=== PATIENT | female | born 1965 | race Caucasian/White ===

== ENCOUNTER 2018-04-02 11:50 | Emergency (ER) | payer BC ==
--- NOTE | 2018-04-02 12:09 | ERPHSYRPT ---
- History of Present Illness Time Seen by Provider: 04/02/18 12:05 Source: patient Exam Limitations: no limitations Patient Subjective Stated Complaint: cut 2nd digit left hand with a knife while cutting [place]orge at home Triage Nursing Assessment: ambulated to room per self. skin w/d, color normal, resp easy. flap lac to 2nd digit left hand approx 2cm. minimal bleeding noted. full rom to finger. Physician History: cut 2nd digit left hand with a knife while cutting george at home Timing/Duration: today Associated Symptoms: denies symptoms Allergies/Adverse Reactions: acetaminophen [From Vicodin] Allergy (Verified 04/02/18 12:04) codeine Allergy (Verified 04/02/18 12:04) hydrocodone [From Vicodin] Allergy (Verified 04/02/18 12:04) morphine Allergy (Verified 04/02/18 12:04) Home Medications: Ezetimibe 10 mg [Zetia 10 MG] 10 mg PO DAILY 04/02/18 [History] Hx Tetanus, Diphtheria Vaccination/Date Given: Yes Hx Influenza Vaccination/Date Given: No Hx Pneumococcal Vaccination/Date Given: No Immunizations Up to Date: No - Review of Systems Constitutional: No Symptoms Skin: Other (superficial laceration on left index finger) - Past Medical History Pertinent Past Medical History: Yes Cardiac History: High Cholesterol - Past Surgical History Past Surgical History: Yes Gastrointestinal: Cholecystectomy Musculoskeletal: Orthopedic Surgery Female Surgical History: Hysterectomy - Social History Smoking Status: Current every day smoker How long have you smoked: 30 Exposure to second hand smoke: No Drug Use: none Patient Lives Alone: No Significant Family History: no pertinent family hx - Female History Hx Now: No - Nursing Vital Signs Nursing Vital Signs: Initial Vital Signs Temperature 98.8 F 04/02/18 11:57 Pulse Rate 102 H 04/02/18 11:57 Respiratory Rate 20 04/02/18 11:57 Blood Pressure 163/99 04/02/18 11:57 O2 Sat by Pulse Oximetry 97 04/02/18 11:57 Pain Scale Pain Intensity 2 - Physical Exam General Appearance: no apparent distress Extremity Exam: normal inspection Neurologic Exam: alert Skin Exam: laceration SpO2: 97 Oxygen Delivery: Room Air Procedures - Laceration/Wound Repair Left Finger Wound Location: Left Wound's Depth, Shape: superficial Wound Explored: clean Irrigated: Yes Hibiclens Prep: Yes Wound Repaired With: Dermabond - Course Nursing assessment & vital signs reviewed: Yes - Progress Progress: improved Counseled pt/family regarding: diagnosis, need for follow-up - Departure Time of Disposition: 12:08 Departure Disposition: Home Clinical Impression: Laceration of left index finger w/o foreign body w/o damage to nail Qualifiers: Encounter type: initial encounter Qualified Code(s): S61.211A - Laceration without foreign body of left index finger without damage to nail, initial encounter Condition: Stable Critical Care Time: No Referrals: LETICIA MORRISON NP [Primary Care Provider] - Instructions: Laceration Repair With Glue (DC) Additional Instructions: LACERATION CARE 1. Do not use peroxide, merthiolate, alcohol, or betadine. 2. Keep wound clean and dry. 3. Change dressing if it becomes wet or soiled. 4. If you must work, wear protective covering. 5. You may return to the emergency department or see your family physician for suture removal. 6. See your family physician or return to the emergency department for any of the following signs or symptoms: A. Redness B. Swelling C. Discolored drainage D. Red streaks E. Elevated temperature F. Other signs of infection
[2018-04-02 12:18] VITALS: BP 150/99; PULSE 92; O2SAT 98
== END 2018-04-02 12:18 | disposition home or self-care (01) ==
LOC: ED 11:50
PROC: 0HQGXZZ Repair Left Hand Skin, External Approach (ICD-10-PCS; principal; 2018-04-02)
DX: S61.211A Laceration without foreign body of left index finger without damage to nail, initial encounter (principal); W26.0XXA Contact with knife, initial encounter; Y93.G3 Activity, cooking and baking; Y92.000 Kitchen of unspecified non-institutional (private) residence as the place of occurrence of the external cause
CPT/HCPCS: 12001; 99283